=== PATIENT | female | born 1970 | race Caucasian/White ===

== ENCOUNTER 2018-03-04 16:52 | Observation (INO) | payer OTHER ==
[~2018-03-04] VITALS: Ht 160 cm; Wt 68.2 kg
--- NOTE | ~2018-03-04 | OP ---
PATIENT NAME: THEO RIDER MEDICAL RECORD: [id number] :68 LOCATION:[facility] ADMISSION DATE:03/04/18 SURGEON: JASE ARCOS MD DATE OF OPERATION: 03/05/2018 PROCEDURES: 1. PTCA stent LAD. 2. Intravascular ultrasound. 3. Left heart catheterization. 4. Selective coronary angiography. 5. Left ventriculogram. INDICATION: Unstable angina and coronary artery disease. PROCEDURE IN DETAIL: After informed consent was obtained and after a detailed description of the risks, benefits as well as alternative therapies, the patient elected to proceed with angiogram and angioplasty. The right radial area was prepped and draped in normal sterile fashion. Right radial artery was cannulated via modified Seldinger technique with placement of 6-Welsh sheath. All catheters exchanged through this sheath. FINDINGS: The left ventriculogram was performed in standard 30-degree DOUGHERTY view, reveals good cardiac wall motion throughout all segments. Overall ejection fraction estimated 60%. SELECTIVE CORONARY ANGIOGRAPHY: 1. Left main is with no significant angiographic disease. 2. Left anterior descending has a long area of greater than 75% stenosis confirmed by intravascular ultrasound throughout the proximal vessel. 3. Left circumflex has moderate irregularities, but no flow-limiting stenosis. 4. Right coronary artery has moderate irregularities, but no flow-limiting stenosis. PTCA STENT OF THE LAD: The stent used was a 3.0 x 22 mm Yamil. Result was 0% residual stenosis. OVERALL IMPRESSION: Successful percutaneous transluminal coronary angioplasty stent of the left anterior descending going from greater than 75% initial stenosis to 0% residual. TRANSINT:[id number] Voice Confirmation ID: [id number] DOCUMENT ID: [id number] JASE ARCOS MD at 1705 CC: [id number] DICTATION DATE: 03/05/18 1237 SURFACE MOUNT TECHNOLOGY OPERATOR: 03/05/18 1301 ADM IN [place] [address] [place] [address]
--- NOTE | ~2018-03-04 | DS ---
PATIENT:THEO RIDER :68 MEDICAL RECORD: [id number] DISCHARGE SUMMARY ADMISSION DATE: 03/04/18 DISCHARGE DATE: DATE OF SERVICE: 03/05/2018 DIAGNOSES: 1. Angina. 2. Coronary artery disease. 3. PTCA and stent of LAD this admission. HOSPITAL COURSE: Ms. Rider presented with anginal symptomatology, found to have significant disease of the LAD. Underwent successful PTCA and stent of this vessel. Was discharged home with the addition of aspirin and Plavix to her medical regimen. Will follow up with [facility] in 1 month. TRANSINT:[id number] Voice Confirmation ID: [id number] DOCUMENT ID: [id number] JASE ARCOS MD at 1705 CC: [id number] DICTATION DATE: 03/05/18 1237 SUPERVISOR DRY CLEANING: 03/05/18 1435 ADM IN [place] [address] [place] [address]
--- NOTE | ~2018-03-04 | HP ---
PATIENT: THEO RIDER MEDICAL RECORD: [id number] ACCOUNT: [id number] [facility] : 68 ADMISSION DATE: 03/04/18 HISTORY AND PHYSICAL EXAMINATION DIAGNOSES: 1. Unstable angina. 2. Hypertension. 3. Hyperlipidemia. 4. Family history of coronary artery disease. 5. Past smoking history. HISTORY OF PRESENT ILLNESS: Mrs. Rider presents with chest discomfort to [facility]. She has had 3 weeks of increasing chest discomfort. She is having daily episodes multiple times each day of chest discomfort compatible with angina. At this time, her EKG is with nonspecific ST-T abnormalities. Her troponin was normal. PHYSICAL EXAMINATION: GENERAL APPEARANCE: Well-nourished, well-developed, appears stated age. Level of distress, comfortable. PSYCHIATRIC: Mental status, alert, normal affect. Orientation, oriented to time, place and person. EYES: Lids and conjunctiva, noninjected. No discharge, no pallor. ENT: Lips, teeth, gums, normal dentition. Oropharynx, no cyanosis, no pallor. NECK: Carotid arteries, bilateral normal upstroke, no bruits, no thrills. JUGULAR VEINS: No jugular venous pressure or distention. CERVICAL LYMPH NODES: Nontender, nonenlarged. THYROID: Not enlarged. Nontender. No nodules. LUNGS: Respiratory effort, unlabored. CHEST: Normal curvature. No thoracic deformity. No chest wall tenderness. Percussion, resonant. Auscultation, clear. No wheezes, no rales, no rhonchi. CARDIOVASCULAR: Precordial exam, nondisplaced. No heaves or pericardial thrills. Rate and rhythm, regular. Heart sounds, normal S1, normal S2. No S3, no gallop, no rub. Systolic murmur, not heard. Diastolic murmur, not heard. EXTREMITIES: No cyanosis, no edema. Peripheral pulses, full and equal in all extremities, except as noted. No bruits appreciated. ABDOMEN: Soft, nondistended. Normal aorta. No bruit. Nontender. No masses. Liver, nontender, no hepatomegaly. Spleen, nontender, no splenomegaly. MUSCULOSKELETAL: No joint tenderness. No joint swelling. No erythema. NEUROLOGICAL: Normal gait, normal strength, normal tone. SKIN: Warm and dry. OVERALL IMPRESSION: Chest pain compatible with angina in an escalating unstable fashion. We will proceed with coronary angiography. Further care depends upon the findings of the angiography. TRANSINT:[id number] Voice Confirmation ID: [id number] DOCUMENT ID: [id number] HISTORY AND PHYSICAL [id number] THEO RIDER JEFFREY MD at 1705 CC: [id number] DICTATION DATE: 03/05/18 0839 DEVICE SALES CONSULTANT: 03/05/18 0904 ADM IN [place] [address] [place] [id number]
--- NOTE | ~2018-03-04 | HEMODYNAMI ---
PATIENT:THEO RIDER MEDICAL RECORD: [id number] : 68 LOCATION:[facility] D.2110 ADMISSION DATE: 03/04/18 Generatedon:03/05/201812:37 Patient name: THEO RIDER Patient #: [id number] SSN: : 1970 Date of study: 03/05/2018 Page: Of Hemodynamic Procedure Report Patient Data Patient Demographics Procedure consent was obtained First Name: THEO Gender: Female Last Name: ADRY : 1970 Patient #: [id number] Age: 47 year(s) Race: Unknown Additional ID: [id number] Past Medical History Allergies: No known allergies Admission Admission Data Admission Date: 03/04/2018 Admission Time: 16:52 Room #: [facility] Lab Results Lab Result Date: 03/04/2018 Lab Result Time: 11:45 Biochemistry Name Units Result Min Max BUN mg/dl 15 --(--*-)-- 7 18 Creatinine mg/dl 1.1 --(--*-)-- 0.6 1.3 CBC Name Units Result Min Max Hematocrit % 41 -*(----)-- 42 54 Hemoglobin g/dl 14.3 --(*---)-- 13.5 17.5 Procedure Procedure Types Cath Procedure Diagnostic Procedure [facility] w/Coronaries FFR/IVUS Intra-Coronary IVUS Initial Sedation Charges Moderate Sedation up to 15 minutes PCI Procedure Coronary Stent Coronary Stent Initial Procedure Description Procedure Date Procedure Date: 03/05/2018 Procedure Start Time: 12:15 Procedure End Time: 12:37 Procedure Staff Name Function Carlos Valerio MD Performing Physician Michele Monroe RN Nurse Malgorzata Ocasio RT Scrub Mahad Wong RT Monitor Procedure Data Cath Procedure Fluoroscopy Diagnostic fluoroscopy Total fluoroscopy Time: 5.8 time: 5.8 min min Diagnostic fluoroscopy Total fluoroscopy dose: 526 dose: 526 mGy mGy Contrast Material Contrast Material Type Amount (ml) Isovue 300 81 Entry Location Entry Primary Successful Side Size Upsize Upsize Entry Closure Haque ccessful Closure Location (Fr) 1 (Fr) 2 (Fr) Remarks Device Remarks Radial Right 6 Fr Mechanical artery Short Compression Estimated blood loss: 10 ml Diagnostic catheters Device Type Used For End Catheter Placement DIAGNOSTIC Redfield 110cm 5 Procedure Fr catheter ([id number]) Procedure Complications No complications Procedure Medications Medication Administration Route Dosage 0.9% NaCl I.V. 100 ml/hr Oxygen etCO2 Nasal cannula 2 l/min Heparin Flush Bag added to field 2 bags (1000units/500ml NS) Lidocaine 1% added to field 20 Radial Cocktail added to field 1 syringe (Verapomil 2mg/Nitro 400mcg/Heparin 1500units) Versed I.V. 2 mg Fentanyl I.V. 100 mcg Fentanyl I.V. 50 mcg Radial Cocktail I.A. 1 syringe (Verapomil 2mg/Nitro 400mcg/Heparin 1500units) Versed I.V. 1 mg Radial Cocktail I.A. 1 syringe (Verapomil 2mg/Nitro 400mcg/Heparin 1500units) Heparin Bolus I.V. 3000 units Hemodynamics Rest HGB: 14.3 (g/dl) Heart Rate: 75 (bpm) Snapshots Pre Cath Intra NCS Post Cath Vital Signs Time Heart Resp SPO2 etCO2 NIBP Rhythm Pain Sedation Rate (ipm) (%) (mmHg) (mmHg) Status Level (bpm) 11:58:12 75 14 97 3 104/60(83) NSR 0 (11) 10(A) , No pain 12:02:49 74 14 95 1.5 104/49(75) NSR 0 (11) 10(A) , No pain 12:07:23 68 15 95 1.5 92/54(84) NSR 0 (11) 10(A) , No pain 12:11:58 68 14 97 2.2 99/46(73) NSR 0 (11) 10(A) , No pain 12:16:32 64 17 99 1.5 114/58(90) NSR 0 (11) 10(A) , No pain 12:21:09 90 19 94 2.2 82/46(73) NSR 0 (11) 10(A) , No pain 12:25:43 84 14 96 2.2 93/39(76) NSR 0 (11) 9(A) , No pain 12:30:17 83 12 95 2.2 95/50(85) NSR 0 (11) 9(A) , No pain 12:34:50 90 12 97 2.2 107/54(86) NSR 0 (11) 9(A) , No pain Medications Time Medication Route Dose Verified Delivered Reason Not es Effectiveness by by 11:55:37 0.9% NaCl I.V. 100 Michele Michele Per physician ml/hr Mabel Monroe RN RN 11:55:47 Oxygen etCO2 2 l/min Michele Michele Per physician Nasal Mabel Monroe cannula RN RN 11:57:46 Heparin Flush added 2 bags Michele Michele used for Bag to Lormyron Monroe procedure (1000units/500ml field RN RN NS) 11:58:05 Lidocaine 1% added 20ml Michele Michele for local to vial Lorigan Lorigan anesthetic RN RN 12:01:53 Radial Cocktail added 1 Michele Michele used for (Verapomil to syringe Mabel Monroe procedure 2mg/Nitro field RN RN 400mcg/Heparin 1500units) 12:09:51 Versed I.V. 2 mg Michele Michele for sedation Mabel Monroe RN RN 12:10:00 Fentanyl I.V. 100 mcg Michele Michele for sedation Mabel Monroe RN RN 12:14:29 Fentanyl I.V. 50 mcg Michele Michele for sedation Mabel Monroe RN RN 12:16:54 Radial Cocktail I.A. 1 Michele Carlos for (Verapomil syringe Mabel Valerio MD vasodilation 2mg/Nitro RN 400mcg/Heparin 1500units) 12:17:06 Versed I.V. 1 mg Michele Michele for sedation Mabel Monroe RN RN 12:24:33 Radial Cocktail I.A. 1 Michele Carlos for (Verapomil syringe Mabel Valerio MD vasodilation 2mg/Nitro RN 400mcg/Heparin 1500units) 12:29:18 Heparin Bolus I.V. 3,000 Michele Michele for units Mabel Monroe anticoagulation RN flat surfacer jewel Log Time Note 11:32:22 Signed procedure consent form obtained from patient. 11:32:24 Time tracking: Regular hours (M-F 7:00 - 5:00) 11:32:28 Plan of Care:Hemodynamics will remain stable., Cardiac rhythm will remain stable., Comfort level will be maintained., Respiratory function will remain adequate., Patient/ family verbilizes understanding of procedure., Procedure tolerated without complication., Recovers from procedure without complications.. 11:34:16 H&P Date Dictated: 03/04/2018 Within 30 days and on chart.. 11:34:22 Michele Monroe RN sent for patient. Start room use. 11:43:11 Patient received from Med II to CCL 1 Alert and oriented. Tansferred to table in Supine position. 11:43:12 Warm blankets applied, and hiral hugger turned on for patient comfort. 11:43:13 Correct patient and procedure confirmed by team. 11:43:14 ECG and BP/O2 sat monitors applied to patient. 11:43:15 Pre-procedure instructions explained to patient. 11:43:15 Pre-op teaching completed and patient verbalized understanding. 11:43:17 Family in patients room. 11:43:18 Patient NPO since Midnight. 11:43:23 Patient allergic to No known allergies 11:55:37 0.9% NaCl 100 ml/hr I.V. was administered by Michele Monroe RN; Per physician; 11:55:47 Oxygen 2 l/min etCO2 Nasal cannula was administered by Michele Monroe RN; Per physician; 11:57:21 Vital chart was started 11:57:46 Heparin Flush Bag (1000units/500ml NS) 2 bags added to field was administered by Michele Monroe RN; used for procedure; 11:58:05 Lidocaine 1% 20ml vial added to field was administered by Michele Monroe RN; for local anesthetic; 12:00:06 Is the patient allergic to Iodine/contrast media? No. 12:00:07 Is patient on blood thinner?Yes 12:00:09 ACC The patient was administered the following blood thiners within the last 24 hours: ACCPlavix 12:00:11 Patient diabetic? No. 12:00:15 Previous problem with sedation/anesthesia? Yes nausea 12:00:17 Snore? No 12:00:18 Sleep apnea? No 12:00:19 Deviated septum? No 12:00:19 Opens mouth fully? Yes 12:00:20 Sticks out tongue? Yes 12:00:22 Airway obstruction? No ? 12:00:23 Dentures? No ? 12:00:26 Pre procedure: right dorsailis pedis pulse 2+ Normal; easily identifiable; not easily obliterated 12:00:28 Modified Pedro's test Ulnar < 7 seconds 12:00:31 Patient pain scale 0/10 ?. 12:00:35 IV patent on arrival in right hand with 0.9% NaCl at [facility]. 12:01:53 Radial Cocktail (Verapomil 2mg/Nitro 400mcg/Heparin 1500units) 1 syringe added to field was administered by Michele Monroe RN; used for procedure; 12::35 Lab Result : BUN 15 mg/dl 12::35 Lab Result : Creatinine 1.1 mg/dl 12::35 Lab Result : Hemoglobin 14.3 g/dl 12::35 Lab Result : Hematocrit 41 % 12:02:40 Lab results completed and on chart. 12:02:43 Right Radial & Right Groin area was prepped with chlora-prep and draped in sterile fashion 12:02:45 Alarms reviewed by R. N. 12:02:46 Sharps counted by scrub and verified by R.N. 12:02:50 Baseline sample Acquired. 12:02:53 Rhythm: sinus rhythm 12:02:54 Full Disclosure recording started 12:02:58 Patient not . Patient has had hysterectomy. 12:03:02 Use device set Radial Dx or PCI 12:03:03 ACIST Syringe (77048) opened to sterile field. 12:03:04 Medline Cath Pack ([id number]) opened to sterile field. 12:03:04 Bag Decanter () opened to sterile field. 12:03:05 ACIST Hand Control (25885) opened to sterile field. 12:03:05 ACIST Manifold (57133) opened to sterile field. 12:03:06 Tegaderm 4 x 4 (1626W) opened to sterile field. 12:03:06 MBrace Wrist Support ([id number]) opened to sterile field. 12:03:11 DIAGNOSTIC WIRE .035 260cm J wire (454854) opened to sterile field. 12:03:12 SHEATH 6Fr Prelude Radial ([id number]) opened to sterile field. 12:05:53 Zero performed for pressure channel P1 12:09:15 Physician arrived 12::15 --------ALL STOP TIME OUT------ 12::16 Final Timeout: patient, procedure, and site verified with staff and physician. All members of the team are in agreement. 12:09:18 Right Radial & Right Groin site verified by team. 12:09:21 Physical assessment completed. ASA score P 2 - A patient with mild systemic disease as per Carlos Valerio MD. 12::23 Sedation plan: IV Moderate Sedation Medication:Versed, Fentanyl 12:09:51 Versed 2 mg I.V. was administered by Michele Monroe RN; for sedation; 12:10:00 Fentanyl 100 mcg I.V. was administered by Michele Monroe RN; for sedation; 12:14:29 Fentanyl 50 mcg I.V. was administered by Michele Monroe RN; for sedation; 12:14:59 Procedure started. 12:15:03 Local anesthetic to right radial artery with Lidocaine 1% by Carlos Valerio MD.INITIAL ACCESS ONLY 12:15:10 A 6 Fr Short sheath was inserted into the Right Radial artery 12:16:11 A DIAGNOSTIC Redfield 110cm 5 Fr catheter (106804) was advanced over the wire and used for Procedure. 12:16:54 Radial Cocktail (Verapomil 2mg/Nitro 400mcg/Heparin 1500units) 1 syringe I.A. was administered by Carlos Valerio MD; for vasodilation; 12:17:04 LV gram done using DOUGHERTY 12:17:06 Versed 1 mg I.V. was administered by Michele Monroe RN; for sedation; 12:17:11 Injector settings: Ml/sec: 5, Volume: 15, 12:17:49 EF : 60 % 12:17:55 RCA angiography performed. 12:18:12 Catheter exchanged over wire. 12:18:33 GUIDE 6FR EBU 3.0 catheter (ON4HBC28) opened to sterile field. 12:18:44 6 Fr ebu 3.0 guide catheter was inserted over the wire 12:20:39 LCA angiography performed. 12:22:13 CHOICE PT Extra Support 182cm wire ([id number]) opened to sterile field. 12:22:14 INFLATOR Merit BasixCompak (NA9916) opened to sterile field. 12:22:15 [place] Solomon Eagleye IVUS Catheter (70553R) opened to sterile field. 12:: GUIDE 6FR EBU 3.5 catheter ([id number]) opened to sterile field. 12:: Catheter exchanged over wire. 12:: 6 Fr ebu 3.5 guide catheter was inserted over the wire 12:: Radial Cocktail (Verapomil 2mg/Nitro 400mcg/Heparin 1500units) 1 syringe I.A. was administered by Carlos Valerio MD; for vasodilation; 12:: choice pt wire advanced. 12::09 Wire advanced across lesion. 12::12 IVUS catheter advanced over wire. 12:29:18 Heparin Bolus 3,000 units I.V. was administered by Michele Monroe RN; for anticoagulation; 12:30:09 IVUS pass to LAD lesion performed. 12:30:17 IVUS catheter removed over wire. 12:31:06 Place stent Inflation Number: 1 A KYRA RX 3.0 x 22 stent ([id number]) was prepped and advanced across the Prox LAD. The stent was deployed at 11 MIGUEL ANGEL for 0:10 (min:sec). 12::16 Stent catheter was removed intact over wire. 12::17 Wire removed. 12::21 Guide catheter removed. ::24 TR BAND Standard ([id number]) opened to sterile field. 12::32 Sheath removed intact; hemostasis achieved with Mechanical Compression to the Right Radial artery. 12::34 Procedure ended.(Physican Out) :: Fluoroscopy time 05.80 minutes. :: Flurop Dose total: 526 12:: Fluoroscopy dose: 526 mGy 12:: Contrast amount:Isovue 300 81ml. 12::34 Sharps counted by scrub and verified by R.N. 12:33:36 TR band inflated with 12cc of air. 12:33:44 Insertion/operative site no bleeding no hematoma. 12:33:51 Post right radial artery:stable, soft, clean and dry 12:33:52 Post Procedure Pulses reassessed and unchanged 12:33:55 Post-procedure physical assessment completed. ASA score P 2 - A patient with mild systemic disease as per Carlos Valerio MD. 12:33:59 Post procedure rhythm: unchanged. 12:35:05 Estimated blood loss: 10 ml 12:35:07 Post procedure instruction explained to patient.Patient verbalizes understanding. 12:35:07 Patient needs reinforcement of post procedure teaching. 12:36:14 Procedure type changed to Cath procedure, Diagnostic procedure, LHC, C w/Coronaries, FFR/IVUS, Intra-Coronary IVUS Initial, Sedation Charges, Moderate Sedation up to 15 minutes, PCI procedure, Coronary Stent, Coronary Stent Initial 12:37:05 Procedure and supply charges have been captured, reviewed, submitted and are correct. 12:37:07 Procedure Complication : No complications 12:37:09 Vital chart was stopped 12:37:10 See physician's report for complete and final results. 12:37:11 Report given to Pre/Post Procedure Room. 12:37:13 Patient transfered to Pre/Post Procedure Room with Stretcher. 12:37:15 Procedure ended. 12:37:15 Full Disclosure recording stopped 12:37:30 End room use (Document Last) Intervention Summary Intervention Notes Time ActionType Lesion and Equipment Used Action# Pressure Duration Attributes 12:31:[address] Place stent Prox LAD KYRA RX 3.0 x 1 11 00:10 22 stent ([id number]) Device Usage Item Name Manufacture Quantity Catalog Number Hospital Part Current Minimal Lot# / Charge Number Stock Stock Serial# Code ACIST Syringe Acist 1 62690 023547 158939 321352 20 (92658) Medical Systems Inc Medline Cath Cardinal 1 [id number] 179990 44814 648780 5 Pack Health ([id number]) Bag Decanter Microtek 1 2001S 941859 49314 010778 5 (2001S) Medical Inc. ACIST Hand Acist 1 83314 261160 709060 515276 5 Control (03258) Medical Systems Inc ACIST Manifold Acist 1 90493 711780 097843 477717 5 (01635) Medical Systems Inc Tegaderm 4 x 4 3M 1 1626W 472678 646665 534637 5 (1626W) MBrace Wrist Advanced 1 140-0250-00 226324 32812 570530 5 Support Vascular ([id number]) Dynamics DIAGNOSTIC WIRE St Jarrell 1 290185 511205 252877 420484 30 .035 260cm J wire (997050) SHEATH 6Fr Merit 1 [id number] 313161 340241 317018 5 Prelude Radial Medical ([id number]) DIAGNOSTIC Terumo 1 40-2289 633531 261197 225617 5 Redfield 110cm 5 Fr catheter (917980) GUIDE 6FR EBU Medtronic 1 [id number] 209639 75343 827687 0 3.0 catheter ([id number]) CHOICE PT Extra Normal 1 [id number] 018046 788969 208966 5 Support 182cm Scientific wire ([id number]) INFLATOR Merit Merit 1 DA9624 714846 969370 838233 15 [facility] (OH9268) [place] 1 11196J 157163 991838 808719 8 Solomon Eagleye IVUS Catheter (50624T) GUIDE 6FR EBU Medtronic 1 [id number] 766274 11412 299717 3 3.5 catheter ([id number]) KYRA RX 3.0 x Medtronic 1 [id number] 455437 9941178 807111 5 [id number] 22 stent ([id number]) TR BAND Terumo 1 [id number] 176434 499935 127170 40 Standard ([id number]) Signature Audit Valier Stage Time Signature Unsigned Intra-Procedure 03/05/2018 Mahad Wong 12:37:46 PM RT(R) Signatures Monitor : Mahad Wong RT Signature : Date : Time : [facility] [address] [place] [address]
[2018-03-04] MEDS ORDERED: MOBIC7.5 MG PO (17:08)
[2018-03-04] MEDS ORDERED: TOPAMAX100 MG PO (17:08)
[2018-03-04] MEDS ORDERED: LIPITOR20 MG PO (17:11)
[2018-03-04] MEDS ORDERED: TOPROL XL25 MG PO (17:12)
[2018-03-04 17:13] VITALS: BP 150/84; Ht 160 cm; Wt 68.2 kg
[2018-03-04 21:05] VITALS: BP 139/67
[2018-03-05] VITALS: BP 127/70
[2018-03-05 04:00] VITALS: BP 109/62
[2018-03-05 07:51] VITALS: BP 117/72
[2018-03-05 11:26] VITALS: BP 124/73
[2018-03-05] MEDS ORDERED: PLAVIX75 MG PO (13:05)
== END 2018-03-05 17:07 | disposition home or self-care (01) ==
LOC: D.M2 16:52 → OBSVTIME 16:52 → D.CLR 03-05 15:00
DX: I25.110 Atherosclerotic heart disease of native coronary artery with unstable angina pectoris (principal); I10 Essential (primary) hypertension; E78.5 Hyperlipidemia, unspecified; Z82.49 Family history of ischemic heart disease and other diseases of the circulatory system; Z87.891 Personal history of nicotine dependence

== ENCOUNTER 2018-09-12 08:06 | Outpatient (CLI) | payer OTHER ==
[~2018-09-12] VITALS: Ht 160 cm; Wt 68.6 kg
--- NOTE | ~2018-09-12 | HEMODYNAMI ---
PATIENT:THEO RIDER MEDICAL RECORD: [id number] : 68 LOCATION:[facility] ADMISSION DATE: 09/12/18 Generatedon:09/12/201811:06 Patient name: THEO RIDER Patient #: [id number] SSN: : 1970 Date of study: 09/12/2018 Page: Of Hemodynamic Procedure Report Patient Data Patient Demographics Procedure consent was obtained First Name: THEO Gender: Female Last Name: ADRY : 1970 Patient #: [id number] Age: 48 year(s) Race: Unknown Additional ID: [id number] Contact details Address: [address] [place] [address] State: [place] City: [place] Zip code: [address] Past Medical History Allergies: No known allergies Admission Admission Data Admission Date: 09/12/2018 Admission Time: 8:06 Height (in.): 63 BSA: 1.72 (m2) Height (cm.): 160.02 BMI: 26.75 (kg/m2) Weight (lbs.): 151 Weight (kg.): 68.49 Lab Results Lab Result Date: 09/12/2018 Lab Result Time: 0:00 Biochemistry Name Units Result Min Max BUN mg/dl 12 --(-*--)-- 7 18 Creatinine mg/dl 0.9 --(-*--)-- 0.6 1.3 CBC Name Units Result Min Max Hemoglobin g/dl 15 --(-*--)-- 13.5 17.5 Procedure Procedure Types Cath Procedure Diagnostic Procedure LHC LHC w/Coronaries FFR/IVUS Intra-Coronary IVUS Initial Sedation Charges Moderate Sedation up to 15 minutes PCI Procedure Coronary Stent Coronary Stent Initial Procedure Description Procedure Date Procedure Date: 09/12/2018 Procedure Start Time: 10:49 Procedure End Time: 11:05 Procedure Staff Name Function Carlos Valerio MD Performing Physician Kirstin Restrepo RT Monitor Mahad Wong RT Scrub Frank Larry RN Nurse Procedure Data Cath Procedure Fluoroscopy Diagnostic fluoroscopy Total fluoroscopy Time: 3.4 time: 3.4 min min Diagnostic fluoroscopy Total fluoroscopy dose: 209 dose: 209 mGy mGy Contrast Material Contrast Material Type Amount (ml) Isovue 300 96 Entry Location Entry Primary Successful Side Size Upsize Upsize Entry Closure Haque ccessful Closure Location (Fr) 1 (Fr) 2 (Fr) Remarks Device Remarks Radial Right 6 Fr Mechanical artery Short Compression Estimated blood loss: 10 ml Diagnostic catheters Device Type Used For End Catheter Placement DIAGNOSTIC [place] 110cm 5 LV Angiography Fr catheter ([id number]) DIAGNOSTIC [place] 110cm 5 Left Coronary Fr catheter ([id number]) Angiography DIAGNOSTIC [place] 110cm 5 Right Coronary Fr catheter ([id number]) Angiography Procedure Complications No complications Procedure Medications Medication Administration Route Dosage Oxygen etCO2 Nasal cannula 2 l/min Heparin Flush Bag added to field 2 bags (1000units/500ml NS) 0.9% NaCl I.V. 100 ml/hr Radial Cocktail added to field 1 syringe (Verapomil 2mg/Nitro 400mcg/Heparin 1500units) Fentanyl I.V. 50 mcg Versed I.V. 1 mg Versed I.V. 1 mg Radial Cocktail I.A. 1 syringe (Verapomil 2mg/Nitro 400mcg/Heparin 1500units) Fentanyl I.V. 50 mcg Heparin Bolus I.V. 4000 units Hemodynamics Rest BSA: 1.72 (m2) HGB: 15 (g/dl) O2 Consumption: Estimated: 165.14 (ml/min) O2 Cons umption indexed: Estimated:96.01 (ml/min/m) Heart Rate: 64 (bpm) Snapshots Pre Cath Intra NCS Post Cath Vital Signs Time Heart Resp SPO2 etCO2 NIBP (mmHg) Rhythm Pain Sedation Rate (ipm) (%) (mmHg) Status Level (bpm) 10:25:07 58 17 99 0 138/78(94) NSR 0 (11) 10(A) , No pain 10:29:25 64 16 100 0 129/74(96) NSR 0 (11) 10(A) , No pain 10:33:43 76 17 100 0 142/66(101) NSR 0 (11) 10(A) , No pain 10:37:55 75 16 100 28.3 135/82(108) NSR 0 (11) 10(A) , No pain 10:42:14 72 16 100 20.1 139/68(97) NSR 0 (11) 10(A) , No pain 10:46:27 73 16 98 28.3 123/67(100) NSR 0 (11) 10(A) , No pain 10:50:35 71 16 96 35.8 115/74(95) NSR 0 (11) 10(A) , No pain 10:54:47 78 16 96 26.1 104/60(83) NSR 0 (11) 9(A) , No pain 10:58:55 81 17 95 17.1 108/63(86) NSR 0 (11) 9(A) , No pain 11:03:05 85 16 96 34.3 119/64(83) NSR 0 (11) 9(A) , No pain 11:05:30 82 16 98 33.6 112/64(79) NSR 0 (11) 9(A) , No pain Medications Time Medication Route Dose Verified Delivered Reason Not es Effectiveness by by 10:41:11 Oxygen etCO2 2 l/min Carlos Marie Per physician Nasal Iman Larry RN cannula 10:41:21 Heparin Flush added 2 bags Carlos Marie used for Bag to Iman Larry RN procedure (1000units/500ml field NS) 10:41:31 0.9% NaCl I.V. 100 Carlos Marie Per physician ml/hr Iman Larry RN 10:43:22 Radial Cocktail added 1 Carlos Marie used for (Verapomil to syringe Iman Larry RN procedure 2mg/Nitro field 400mcg/Heparin 1500units) 10:47:21 Fentanyl I.V. 50 mcg Carlos Marie for sedation Iman Larry RN 10:47:29 Versed I.V. 1 mg Carlos Marie for sedation Iman Larry RN 10:49:29 Versed I.V. 1 mg Carlos Marie for sedation Iman Larry RN 10:51:59 Radial Cocktail I.A. 1 Carlos Gonzalez for (Verapomil syringe Iman celaya 2mg/Nitro 400mcg/Heparin 1500units) 10:52:09 Fentanyl I.V. 50 mcg Carlos Marie for sedation Tauth MD Larry RN 11:01:16 Heparin Bolus I.V. 4000 Carlos Marie for units Iman Larry RN anticoagulation Procedure Log Time Note 10:05:48 Frank Larry RN sent for patient. Start room use. 10:11:46 Signed procedure consent form obtained from patient. 10:11:49 Diagnostic Cath status Elective 10:11:54 Plan of Care:Hemodynamics will remain stable., Cardiac rhythm will remain stable., Comfort level will be maintained., Respiratory function will remain adequate., Patient/ family verbilizes understanding of procedure., Procedure tolerated without complication., Recovers from procedure without complications.. 10:11:55 Time tracking: Regular hours (M-F 7:00 - 5:00) 10:12:02 H&P Date Dictated: 09/10/2018 Within 30 days and on chart., H&P Addendum completed by physician on day of procedure. (MUST COMPLETE FOR ALL OUTPATIENTS). 10:12:10 Patient Height : 63 inches 10:12:13 Patient Weight : 151 lbs 10:12:22 Patient allergic to No known allergies 10:14:27 Lab Result : BUN 12 mg/dl 10:14:27 Lab Result : Creatinine 0.9 mg/dl 10:14:27 Lab Result : Hemoglobin 15 g/dl 10:20:55 Patient received from Pre/Post Procedure Room to CCL 3 Alert and oriented. Tansferred to table in Supine position. 10:20:56 Warm blankets applied, and hiral hugger turned on for patient comfort. 10:20:56 Correct patient and procedure confirmed by team. 10:20:56 ECG and BP/O2 sat monitors applied to patient. 10:20:57 Pre-procedure instructions explained to patient. 10:20:58 Pre-op teaching completed and patient verbalized understanding. 10:20:58 Family in waiting room. 10:21:00 Patient NPO since Midnight. 10:21:01 Is the patient allergic to Iodine/contrast media? No. 10:21:02 Is patient on blood thinner?Yes 10:21:04 ACC The patient was administered the following blood thiners within the last 24 hours: ACCPlavix 10:21:05 Patient diabetic? No. 10:21:10 Previous problem with sedation/anesthesia? Yes nausea 10:21:11 Snore? No 10:21:13 Sleep apnea? No 10:21:14 Deviated septum? No 10:21:14 Opens mouth fully? Yes 10:21:15 Sticks out tongue? Yes 10:21:16 Airway obstruction? No ? 10:21:18 Dentures? No ? 10:21:21 Modified Pedro's test Ulnar < 7 seconds 10:21:22 Patient pain scale 0/10 ?. 10:21:26 IV patent on arrival in left wrist with 0.9% NaCl at [facility]. 10:21:27 Lab results completed and on chart. 10:21:29 Right Radial & Right Groin area was prepped with chlora-prep and draped in sterile fashion 10:21:30 Alarms reviewed by R. N. 10:21:30 Sharps counted by scrub and verified by R.N. 10:21:32 Use device set Radial Dx or PCI 10:21:32 ACIST Syringe (57504) opened to sterile field. 10:21:33 Medline Cath Pack ([id number]) opened to sterile field. 10:21:33 Bag Decanter (2002S) opened to sterile field. 10:21:34 ACIST Hand Control (01620) opened to sterile field. 10:21:34 ACIST Manifold (46872) opened to sterile field. 10:21:35 Tegaderm 4 x 4 (1626W) opened to sterile field. 10:21:35 MBrace Wrist Support ([id number]) opened to sterile field. 10:21:36 SHEATH 6FR Slender (01-9650) opened to sterile field. 10:21:37 DIAGNOSTIC WIRE .035 260cm J wire (428327) opened to sterile field. 10:24:04 Vital chart was started 10:24:33 Baseline sample Acquired. 10:27:53 Rhythm: sinus rhythm 10:27:55 Full Disclosure recording started 10:28:58 Patient not . Patient has had hysterectomy. 10:41:11 Oxygen 2 l/min etCO2 Nasal cannula was administered by Frank Larry RN; Per physician; 10:41:21 Heparin Flush Bag (1000units/500ml NS) 2 bags added to field was administered by Frank Larry RN; used for procedure; 10:41:31 0.9% NaCl 100 ml/hr I.V. was administered by Frank Larry RN; Per physician; 10:43:22 Radial Cocktail (Verapomil 2mg/Nitro 400mcg/Heparin 1500units) 1 syringe added to field was administered by Frank Larry RN; used for procedure; ::52 Zero performed for pressure channel P1 10:47:00 Final Timeout: patient, procedure, and site verified with staff and physician. All members of the team are in agreement. 10:47:05 Right Radial site verified by team. 10:47:08 Physical assessment completed. ASA score P 2 - A patient with mild systemic disease as per Carlos Valerio MD. 10:47:10 Sedation plan: IV Moderate Sedation Medication:Versed, Fentanyl 10:47:21 Fentanyl 50 mcg I.V. was administered by Frank Larry RN; for sedation; :47:29 Versed 1 mg I.V. was administered by Frank Larry RN; for sedation; 10:49:00 Procedure started. 10:49:04 Local anesthetic to right radial artery with Lidocaine 2% by Carlos Valerio MD.INITIAL ACCESS ONLY 10:49:29 Versed 1 mg I.V. was administered by Frank Larry RN; for sedation; 10:51:52 A 6 Fr Short sheath was inserted into the Right Radial artery 10:51:59 Radial Cocktail (Verapomil 2mg/Nitro 400mcg/Heparin 1500units) 1 syringe I.A. was administered by Carlos Valerio MD; for vasodilation; 10:52:00 A DIAGNOSTIC [place] 110cm 5 Fr catheter (052708) was advanced over the wire and used for LV Angiography. 10:52:09 Fentanyl 50 mcg I.V. was administered by Frank Larry RN; for sedation; 10:52:56 LV gram done using [place] 10:53:00 Injector settings: Ml/sec: 5, Volume: 15, 10:53:09 EF : 60 % 10:54:32 A DIAGNOSTIC [place] 110cm 5 Fr catheter ([id number]) was advanced over the wire and used for Left Coronary Angiography. 10:54:54 A DIAGNOSTIC [place] 110cm 5 Fr catheter (165471) was advanced over the wire and used for Right Coronary Angiography. 10:55:13 Use device set [facility] PCI 10:55:21 INFLATOR Merit BasixCompak (UF2273) opened to sterile field. 10:55:25 CHOICE PT Extra Support 182cm wire ([id number]) opened to sterile field. 10:55:30 GUIDE 6FR AR 1.0 catheter ([id number]) opened to sterile field. 10:55:38 Show Low [place] IVUS Catheter (49896N) opened to sterile field. 10:56:56 6 Fr AR 1.0 guide catheter was inserted over the wire 10:57:29 CHOICE PT ES wire advanced. 10:59:27 IVUS catheter advanced over wire. 10:59:32 IVUS pass to RCA lesion performed. 10:59:33 IVUS catheter removed over wire. 11:01:15 Inflate balloon Inflation number: 1 A INTEGRITY RX 3.5 x 15 stent ([id number]) was prepped and advanced across the Mid RCA, then inflated to 13 MIGUEL ANGEL for 0:10 (min:sec). 11:01:16 Heparin Bolus 4000 units I.V. was administered by Frank Larry RN; for anticoagulation; 11:01:51 Stent catheter was removed intact over wire. 11:01:51 Wire removed. 11:01:54 Guide catheter removed. 11:02:03 Sheath removed intact; hemostasis achieved with Mechanical Compression to the Right Radial artery. 11:02:08 Procedure ended.(Physican Out) 11:03:09 Fluoroscopy time 03.40 minutes. 11:03:14 Fluoroscopy dose: 209 mGy 11:03:14 Flurop Dose total: 209 11:03:19 Contrast amount:Isovue 300 96ml. 11:03:21 Sharps counted by scrub and verified by R.N. 11:03:27 TR band inflated with 10cc of air. 11:03:29 Insertion/operative site no bleeding no hematoma. 11:03:37 Post right radial artery:stable, clean and dry 11:03:42 Post Procedure Pulses reassessed and unchanged 11:03:44 Post-procedure physical assessment completed. ASA score P 2 - A patient with mild systemic disease as per Carlos Valerio MD. 11:03:52 Post procedure rhythm: unchanged. 11:03:54 Estimated blood loss: 10 ml 11:03:56 Post procedure instruction explained to patient.Patient verbalizes understanding. 11:03:56 Patient needs reinforcement of post procedure teaching. 11:04:15 Procedure type changed to Cath procedure, Diagnostic procedure, LHC, LHC w/Coronaries, FFR/IVUS, Intra-Coronary IVUS Initial, Sedation Charges, Moderate Sedation up to 15 minutes, PCI procedure, Coronary Stent, Coronary Stent Initial 11:04:22 Procedure Complication : No complications 11:04:23 See physician's report for complete and final results. 11:04:29 TR BAND Standard ([id number]) opened to sterile field. 11:04:51 Procedure and supply charges have been captured, reviewed, submitted and are correct. 11:04:52 Vital chart was stopped 11:04:54 Report given to Pre/Post Procedure Room. 11:04:57 Patient transfered to Pre/Post Procedure Room with Stretcher. 11:05:07 Procedure ended. 11:05:07 Full Disclosure recording stopped 11:05:11 End room use (Document Last) Intervention Summary Intervention Notes Time ActionType Lesion and Equipment Action# Pressure Duration Attributes Used 11:01:15 Inflate Mid RCA INTEGRITY RX 1 13 00:10 balloon 3.5 x 15 stent ([id number]) Device Usage Item Name Manufacture Quantity Catalog Number Hospital Part Current Mini mal Lot# / Charge Number Stock Stock Serial# Code ACIST Acist 1 87857 216691 904079 112943 20 Syringe Medical (02302) Systems Inc Medline Cath Medline 1 [id number] 108814 43543 201781 5 Pack ([id number]) Bag Decanter Microtek 1 2001S 547332 96116 946511 5 (2001S) Medical Inc. ACIST Hand Acist 1 88705 158529 340615 737769 5 Control Medical (17675) Systems Inc ACIST Acist 1 67115 467985 984106 092172 5 Manifold Medical (19050) Systems Inc Tegaderm 4 x 3M 1 1626W 268102 637250 200557 5 4 (1626W) MBrace Wrist Advanced 1 140-0250-00 850938 41731 664157 5 Support Vascular (122931492) Dynamics SHEATH 6FR Terumo 1 [id number] 084153 980593 603176 5 Slender (80-1060) DIAGNOSTIC St Jarrell 1 126852 067336 976948 482008 30 WIRE .035 260cm J wire (443788) DIAGNOSTIC Terumo 1 40-6798 735482 450851 419925 5 [place] 110cm 5 Fr catheter (288590) INFLATOR Merit 1 DB9738 384859 302675 513855 15 [facility] Medical BasixCompak (OK6105) CHOICE PT Simpson 1 [id number] 483104 029422 885890 5 Extra Scientific Support 182cm wire (1791406C0) GUIDE 6FR AR Medtronic 1 [id number] 117678 17224 287912 1 1.0 catheter (RQ7TD85) Show Low Show Low 1 93590L 734198 503406 463908 8 [place] IVUS Catheter (92747V) INTEGRITY RX Medtronic 1 [id number] 837425 783071 520869 5 [id number] 3.5 x 15 stent ([id number]) TR BAND Terumo 1 [id number] 313610 807570 905920 40 Standard ([id number]) Signature Audit [place] Stage Time Signature Unsigned Intra-Procedure 09/12/2018 Kirstin 11:06:48 AM Counts RT(R) Signatures Monitor : Kirtsin Signature : Counts RT Date : Time : [address] [address]
[~2018-09-12 08:06] MED LIST: LIPITOR20 MG PO; MOBIC7.5 MG PO; PLAVIX75 MG PO; TOPAMAX100 MG PO; TOPROL XL25 MG PO
[2018-09-12] MEDS ORDERED: BYSTOLIC5 MG PO (08:31)
[2018-09-12] MEDS ORDERED: RED YEAST RICE600 MG PO (08:32)
[2018-09-12] MEDS ORDERED: BAYER CHEWABLE81 MG PO (08:32)
[2018-09-12] MEDS ORDERED: KRILL OIL 1,001 EAC1 PO (08:32)
[2018-09-12 08:37] VITALS: BP 142/66; Ht 160 cm; Wt 68.6 kg
[2018-09-12 08:49] LABS: EOSINOPHILS 2.3 % (0-7); HEMATOCRIT 42.4 % (36.0-48.0); IMMATURE GRANULOCYTES 0.2 % (0-5); LYMPHOCYTES 42.5 % (15-50); MCHC 35.4 g/dL (31.0-37.0); MCV 84.8 fL (80.0-100.0); MEAN PLATELET VOLUME 10.2 fL (7.4-10.4); MONOCYTES 9.3 % (2-11); NEUTROPHILS 44.7 % (40-80); PLATELET COUNT 290 10x3/uL (130-400); RDW 13.2 % (11.5-14.5); WBC 6.1 10x3/uL (4.8-10.8)
[2018-09-12 09:02] LABS: ANION GAP 16.1 mmol/L (8-16); CARBON DIOXIDE 21.6 mmol/L (21.0-32.0); CREATININE - SERUM 0.9 mg/dL (0.6-1.3); POTASSIUM - SERUM 3.7 mmol/L (3.5-5.1)
--- NOTE | 2018-09-18 14:56 | OP ---
PATIENT NAME: THEO RIDER MEDICAL RECORD: [id number] :68 LOCATION:D.CAT ADMISSION DATE: SURGEON: JASE ARCOS MD DATE OF OPERATION: 09/12/2018 PROCEDURES: 1. PTCA and stent, RCA. 2. Intravascular ultrasound. 3. Left heart catheterization. 4. Selective coronary angiography. 5. Left ventriculogram. INDICATION: Angina and coronary artery disease. PROCEDURE IN DETAIL: After informed consent was obtained with detailed description of risks and benefits as well as alternative therapies, the patient elected to proceed with angiogram and angioplasty. The right radial area was prepped and draped in normal sterile fashion. Right radial artery was cannulated via modified Seldinger technique with placement of 6-Romansh sheath. All catheters were exchanged through this sheath. FINDINGS: Left ventriculogram performed in standard 30-degree DOUGH[place] view reveals good cardiac wall motion throughout all segments. Overall ejection fraction estimated at 60%. SELECTIVE CORONARY ANGIOGRAPHY: 1. Left main is with no significant angiographic disease. 2. Left anterior descending has moderate irregularities, but no flow-limiting stenosis. Previously placed stent is widely patent with no significant restenosis. 3. Left circumflex has moderate irregularities, but no flow-limiting stenosis. 4. Right coronary has 70% stenosis in mid vessel. It is new from last cardiac catheterization. This is confirmed by intravascular ultrasound. PTCA AND STENT OF THE RCA: Stent used was 3.5- x 15-mm Integrity. Result was 0% residual stenosis. OVERALL IMPRESSION: Successful PTCA and stent of the RCA, going from 70% initial stenosis confirmed by intravascular ultrasound to 0% residual. TRANSINT:[id number] Voice Confirmation ID: [id number] DOCUMENT ID: [id number] JASE ARCOS MD at 1456 CC: [id number] DICTATION DATE: 09/12/18 1106 LIBRARIAN HELPER: 09/12/18 1310 DEP CLI 09/12/[address] [address]
== END 2018-09-12 14:45 | disposition home or self-care (01) ==
LOC: D.CATH 08:06
PROVIDERS: Internal Medicine Interventional Cardiology
DX: I25.119 Atherosclerotic heart disease of native coronary artery with unspecified angina pectoris (principal); Z01.812 Encounter for preprocedural laboratory examination

== ENCOUNTER 2019-08-05 08:02 | Outpatient (CLI) | payer OTHER ==
[~2019-08-05] VITALS: Ht 160 cm; Wt 71.4 kg
--- NOTE | ~2019-08-05 | HEMODYNAMI ---
PATIENT:THEO RIDER MEDICAL RECORD: [id number] : 68 LOCATION:[facility] ADMISSION DATE: 08/05/19 Generatedon:08/05/201910:44 Patient name: THEO RIDER Patient #: [id number] SSN: : 1970 Date of study: 08/05/2019 Page: Of Hemodynamic Procedure Report Patient Data Patient Demographics Procedure consent was obtained First Name: THEO Gender: Female Last Name: ADRY : 1970 Patient #: [id number] Age: 48 year(s) Race: Additional ID: [id number] Contact details Address: [address] [place] [address] State: [place] City: [place] Zip code: [address] Past Medical History History of disease Date Diagnosis Comments CAD Allergies: No known allergies Admission Admission Data Admission Date: 08/05/2019 Admission Time: 8:02 Arrival Date: 08/05/2019 Arrival Time: 0:00 Insurance Payor: Private health insurance [facility] #: [id number] Height (in.): 62.99 BSA: 1.74 (m2) Height (cm.): 160 BMI: 27.82 (kg/m2) Weight (lbs.): 157 Weight (kg.): 71.21 Lab Results Lab Result Date: 08/05/2019 Lab Result Time: 0:00 Biochemistry Name Units Result Min Max BUN mg/dl 13 --(--*-)-- 7 18 Creatinine mg/dl 1.1 --(--*-)-- 0.6 1.3 eGFR ml/min 56 *-(----)-- 90 120 NONAFRICAN CBC Name Units Result Min Max Hematocrit % 42.2 --(*---)-- 42 54 Hemoglobin g/dl 14.6 --(-*--)-- 13.5 17.5 Procedure Procedure Types Cath Procedure Diagnostic Procedure C [facility] w/Coronaries FFR/IVUS FFR Initial Sedation Charges Moderate Sedation up to 15 minutes PCI Procedure Coronary Stent Coronary Stent Initial Procedure Description Procedure Date Procedure Date: 08/05/2019 Procedure Start Time: 10:19 Procedure End Time: 10:40 Procedure Staff Name Function Carlos Valerio MD Performing Physician Malgorzata Ocasio RT Monitor Misty Nguyễn RT Scrub Jareth Brown RT Scrub Allison Joyner RN Nurse Jorgito Ruiz RT Hand Tier Indication Angina Procedure Data Cath Procedure Fluoroscopy Diagnostic fluoroscopy Total fluoroscopy Time: 3.2 time: 3.2 min min Diagnostic fluoroscopy Total fluoroscopy dose: 251 dose: 251 mGy mGy Contrast Material Contrast Material Type Amount (ml) Isovue 300 94 Entry Location Entry Primary Successful Side Size Upsize Upsize Entry Closure Haque ccessful Closure Location (Fr) 1 (Fr) 2 (Fr) Remarks Device Remarks Radial Right 6 Fr Mechanical artery Short Compression Estimated blood loss: 10 ml Diagnostic catheters Device Type Used For End Catheter Placement DIAGNOSTIC [place] 110cm 5 Procedure Fr catheter ([id number]) Procedure Complications No complications Procedure Medications Medication Administration Route Dosage Oxygen etCO2 Nasal cannula 2 l/min Lidocaine 2% added to field 20 Heparin Flush Bag added to field 2 bags (1000units/500ml NS) 0.9% NaCl I.V. 100 ml/hr Radial Cocktail I.A. 1 syringe (Verapamil 2mg/Nitro 400mcg/Heparin 1500units) Zofran I.V. 4 mg Versed I.V. 1 mg Fentanyl I.V. 50 mcg Versed I.V. 1 mg Fentanyl I.V. 50 mcg Versed I.V. 1 mg Heparin Bolus I.V. 4000 units Integrilin (Bolus I.V. 6.2 ml 2mg/ml) Plavix P.O. 600 mg Hemodynamics Rest BSA: 1.74 (m2) HGB: 14.6 (g/dl) O2 Consumption: Estimated: 183.92 (ml/min) O2 Co nsumption indexed: Estimated:105.7 (ml/min/m) Heart Rate: 91 (bpm) Snapshots Pre Cath Intra NCS Post Cath Vital Signs Time Heart Resp SPO2 etCO2 NIBP (mmHg) Rhythm Pain Sedation Rate (ipm) (%) (mmHg) Status Level (bpm) 10:03:18 90 13 100 33.3 157/95(126) NSR 0 (11) 10(A) , No pain 10:07:40 74 13 100 36.4 145/79(104) NSR 0 (11) 10(A) , No pain 10:11:54 78 13 97 31.8 135/77(103) NSR 0 (11) 10(A) , No pain 10:16:10 70 14 93 29.5 127/70(100) NSR 0 (11) 10(A) , No pain 10:20:23 74 10 99 30.3 145/77(102) NSR 0 (11) 9(A) , No pain 10:24:38 82 15 90 34.1 106/63(81) NSR 0 (11) 9(A) , No pain 10:28:48 72 18 96 34 123/61(83) NSR 0 (11) 9(A) , No pain 10:33:04 78 11 97 36.3 121/63(89) NSR 0 (11) 9(A) , No pain 10:37:16 84 12 100 34.8 120/69(93) NSR 0 (11) 10(A) , No pain 10:41:26 84 13 100 34.1 124/75(97) NSR 0 (11) 10(A) , No pain Medications Time Medication Route Dose Verified Delivered Reason Not es Effectiveness by by 10:02:22 Oxygen etCO2 2 l/min Carlos Cooper used for Nasal Iman Joyner RN procedure cannula 10:02:28 Lidocaine 2% added 20ml Carlos Gonzalez for local to vial Iman Valerio MD anesthetic field 10:02:35 Heparin Flush added 2 bags Carlos Gonzalez used for Bag to Iman Valerio MD procedure (1000units/500ml field NS) 10:02:44 0.9% NaCl I.V. 100 Carlos Cooper Per physician ml/hr Iman Joyner RN 10:05:56 Zofran I.V. 4 mg Carlos Cooper Per physician Iman Joyner RN 10:16:40 Versed I.V. 1 mg Carlos Cooper for sedation Iman Joyner RN 10:16:46 Fentanyl I.V. 50 mcg Carlos Cooper for sedation Iman Joyner RN 10:20:32 Radial Cocktail I.A. 1 Carlos Gonzalez for (Verapamil syringe Iman Valerio MD vasodilation 2mg/Nitro 400mcg/Heparin 1500units) 10:20:37 Versed I.V. 1 mg Carlos Cooper for sedation Iman Joyner RN 10:20:41 Fentanyl I.V. 50 mcg Carlos Cooper for sedation Iman Joyner RN 10:26:23 Versed I.V. 1 mg Carlos Cooper for sedation Iman Joyner RN 10:30:18 Heparin Bolus I.V. 4000 Carlos Cooper for units Iman Joyner RN anticoagulation 10:31:41 Integrilin I.V. 6.2 ml Carlos Cooper for was virgilio (Bolus 2mg/ml) Iman Joyner RN antiplatelet 3.8 ml therapy of vial 10:39:33 Plavix P.O. 600 mg Carlos Cooper for Iman Joyner RN antiplatelet therapy Procedure Log Time Note 9:47:55 Informed consent obtained and on chart 9:48:21 Procedure Status Elective Heart Cath (OP). 9:48:22 Time tracking: Regular hours (M-F 7:00 - 5:00) 9:48:25 Plan of Care:Hemodynamics will remain stable., Cardiac rhythm will remain stable., Comfort level will be maintained., Respiratory function will remain adequate., Patient/ family verbilizes understanding of procedure., Procedure tolerated without complication., Recovers from procedure without complications.. 9:48:28 Jorgito BASHIR(R) sent for patient. Start room use. 9:54:36 H&P Date Dictated: 08/03/2019 Within 30 days and on chart., H&P Addendum completed by physician on day of procedure. (MUST COMPLETE FOR ALL OUTPATIENTS). 9:54:41 Patient allergic to No known allergies 9:54:48 Patient Weight : 157 lbs 9:55:01 Patient Height : 62.99 inches 9:55:06 Arrival Date: 08/05/2019 12:00:00 AM 9:55:48 Lab Result : Hematocrit 42.2 % 9:55:48 Lab Result : eGFR NONAFRICAN 56 ml/min 9:55:48 Lab Result : Hemoglobin 14.6 g/dl 9:55:48 Lab Result : BUN 13 mg/dl 9:55:48 Lab Result : Creatinine 1.1 mg/dl 9:56:14 Patient received from Pre/Post Procedure Room to [facility] 1 Alert and oriented. Tansferred to table in Supine position. 9:56:16 Warm blankets applied, and hiral hugger turned on for patient comfort. 9:56:16 Correct patient and procedure confirmed by team. 9:56:16 ECG and BP/O2 sat monitors applied to patient. 9:58:28 Risk of Mortality: .1 9:58:30 Risk of blood transfusion: .5 9:58:33 Risk of TAMMY: 1.2 9:59:05 ACC Patient presents with Stable Angina CCS Anginal Class 3--Marked limitation of physical activity, angina occurs with ordinary activity.. 9:59:07 ACCPatient has been prescribed/administered the following anti-anginal medication within the last 2 weeks: Beta Gina 10:02:09 Vital chart was started 10:02:22 Oxygen 2 l/min etCO2 Nasal cannula was administered by Allison Joyner RN; used for procedure; Verbal order read back and verified. 10:02:28 Lidocaine 2% 20ml vial added to field was administered by Carlos Valerio MD; for local anesthetic; Verbal order read back and verified. 10:02:35 Heparin Flush Bag (1000units/500ml NS) 2 bags added to field was administered by Carlos Valerio MD; used for procedure; Verbal order read back and verified. 10:02:44 0.9% NaCl 100 ml/hr I.V. was administered by Allison Joyner RN; Per physician; Verbal order read back and verified. 10:03:17 Baseline sample Acquired. 10:03:20 Rhythm: sinus rhythm 10:03:21 Full Disclosure recording started 10:03:22 Pre-procedure instructions explained to patient. 10:03:22 Pre-op teaching completed and patient verbalized understanding. 10:03:24 Family in patients room. 10:03:26 Patient NPO since Midnight. 10:03:30 Is the patient allergic to Iodine/contrast media? No. 10:03:32 Is patient on blood thinner?No 10:03:36 Patient diabetic? No. 10:03:43 Patient not . Patient has had hysterectomy. 10:03:55 Previous problem with sedation/anesthesia? No ? 10:03:56 Snore? Yes 10:03:57 Sleep apnea? No 10:03:58 Deviated septum? No 10:04:00 Opens mouth fully? Yes 10:04:01 Sticks out tongue? Yes 10:04:02 Airway obstruction? No ? 10:04:05 Dentures? No ? 10:04:07 Modified Pedro's test Ulnar < 7 seconds 10:04:09 Patient pain scale 0/10 ?. 10:04:18 IV patent on arrival in right antecubital with 0.9% NaCl at [facility]. 10:04:21 Lab results completed and on chart. 10:04:25 Right Radial & Right Groin area was prepped with chlora-prep and draped in sterile fashion 10:04:26 Alarms reviewed by R. N. 10:04:26 Sharps counted by scrub and verified by R.N. 10:04:29 Use device set Radial Dx or PCI 10:04:31 ACIST Syringe (05442) opened to sterile field. 10:04:31 Medline Cath Pack ([id number]) opened to sterile field. 10:04:31 Bag Decanter (2002S) opened to sterile field. 10:04:32 ACIST Hand Control (11419) opened to sterile field. 10:04:32 ACIST Manifold (67147) opened to sterile field. 10:04:32 Tegaderm 4 x 4 (1626W) opened to sterile field. 10:04:34 MBrace Wrist Support ([id number]) opened to sterile field. 10:04:34 EMERALD Guide Wire (240-767) opened to sterile field. 10:04:35 SHEATH 6FR RAIN (1472538) opened to sterile field. 10:05:56 Zofran 4 mg I.V. was administered by Allison Joyner RN; Per physician; Verbal order read back and verified. 10:10:44 Indication : Angina 10:12:38 Insurance Payor : Private health insurance 10:16:28 --------ALL STOP TIME OUT------ 10:16:28 Final Timeout: patient, procedure, and site verified with staff and physician. All members of the team are in agreement. 10:16:30 Right Radial & Right Groin site verified by team. 10:16:34 Fire Safety Assessment: A--An alcohol-based skin anteseptic being used preoperatively., C--Open oxygen or nitrous oxide is being used., D--An ESU, laser, or fiber-optic light is being used. 10:16:37 Physical assessment completed. ASA score P 2 - A patient with mild systemic disease as per Carlos Valerio MD. 10:16:40 Versed 1 mg I.V. was administered by Allison Joyner RN; for sedation; Verbal order read back and verified. 10:16:41 3a) 45-59 Moderately reduced kidney function. 10:16:46 Fentanyl 50 mcg I.V. was administered by Allison Joyner RN; for sedation; Verbal order read back and verified. 10:16:52 Maximum allowable contrast dose (3.7 X eGFR X 0.75)155 ml. 10:16:55 Sedation plan: IV Moderate Sedation Medication:Versed, Fentanyl 10:17:09 Zero performed for pressure channel P1 10:19:03 Procedure started. 10:19:11 Local anesthetic to right radial artery with Lidocaine 2% by Carlos Valerio MD.INITIAL ACCESS ONLY 10:19:35 A 6 Fr Short sheath was inserted into the Right Radial artery 10:20:07 A DIAGNOSTIC [place] 110cm 5 Fr catheter (930100) was advanced over the wire and used for Procedure. 10:20:32 Radial Cocktail (Verapamil 2mg/Nitro 400mcg/Heparin 1500units) 1 syringe I.A. was administered by Carlos Valerio MD; for vasodilation; Verbal order read back and verified. 10:20:37 Versed 1 mg I.V. was administered by Allison Joyner RN; for sedation; Verbal order read back and verified. 10:20:37 LV gram done using [place] 10:20:38 Injector settings: Ml/sec: 5, Volume: 15, 10:20:41 Fentanyl 50 mcg I.V. was administered by Allison Joyner RN; for sedation; Verbal order read back and verified. 10:21:32 EF : 60 % 10:21:50 RCA angiography performed. 10:22:33 LCA angiography performed. 10:24:49 Catheter exchanged over wire. 10:25:14 INFLATOR Merit BasixCompak ([id number]) opened to sterile field. 10:25:15 [place] Verrata Plus pressure wire (45654V) opened to sterile field. 10:25:15 GUIDE 6FR AR 2.0 catheter ([id number]) opened to sterile field. 10:25:22 ACCDominant side:Right 10:25:37 6 Fr AR 2 guide catheter was inserted over the wire 10::23 Versed 1 mg I.V. was administered by Allison Joyner RN; for sedation; Verbal order read back and verified. 10::23 FFR/IFR wire advanced. 10:28:28 Wire advanced across lesion. 10:28:37 PDA lesion measured at .88 with IFR 10:29:31 Pre PCI Site: [place] PDA has 80% stenosis. 10:30:18 Heparin Bolus 4000 units I.V. was administered by Allison Joyner RN; for anticoagulation; Verbal order read back and verified. 10:31:20 Place stent Inflation Number: 1 A COBRA RX 2.5 X 12 Stent was prepped and advanced across the R PDA . The stent was deployed at 9 MIGUEL ANGEL for 0:00 (min:sec) . 10::34 Stent catheter was removed intact over wire. 10:31:35 Wire removed. 10:31:36 Guide catheter removed. 10:31:39 ACT drawn and resulted at >400 seconds. (normal therapeutic range 180-240 seconds). 10:31:41 Integrilin (Bolus 2mg/ml) 6.2 ml I.V. was administered by Allison Joyner RN; for antiplatelet therapy; wasted 3.8 ml of vial Verbal order read back and verified. 10:32:43 Procedure ended.(Physican Out) 10:32:47 ZEPHYR REGULAR TR BAND (333848) opened to sterile field. 10:32:55 Sheath removed intact; hemostasis achieved with Mechanical Compression to the Right Radial artery. 10:34:28 Fluoroscopy dose: 251 mGy 10:34:28 Flurop Dose total: 251 10:34:33 Fluoroscopy time 03.20 minutes. 10:34:49 Dose Area Product 09830 mGy/cm. 10:34:56 Contrast amount:Isovue 300 94ml. 10:34:58 Maximum allowable dose exceeded? No. 10:34:59 Sharps counted by scrub and verified by R.N. 10:35:01 [place] band inflated with 17cc of air. 10:35:04 Post-procedure physical assessment completed. ASA score P 2 - A patient with mild systemic disease as per Carlos Valerio MD. 10:35:06 Post procedure rhythm: sinus rhythm 10:35:09 Estimated blood loss: 10 ml 10:35:10 Post procedure instruction explained to patient.Patient verbalizes understanding. 10:35:10 Patient needs reinforcement of post procedure teaching. 10:35:52 Procedure type changed to Cath procedure, Diagnostic procedure, C, [facility] w/Coronaries, FFR/IVUS, FFR Initial, Sedation Charges, Moderate Sedation up to 15 minutes, PCI procedure, Coronary Stent, Coronary Stent Initial 10:36:45 Procedure and supply charges have been captured, reviewed, submitted and are correct. 10:36:49 Procedure Complication : No complications 10:36:52 [facility] Findings: MVD- PCI performed (see procedure note) 10:36:53 Operative report dictated upon procedure completion. 10:36:53 See physician's report for complete and final results. 10:38:45 Report given to Pre/Post Procedure Room. 10:38:48 Patient transfered to Pre/Post Procedure Room with Bed. 10:38:57 ACC-PCI Only Patient was given prescriptions, or instructed by Carlos Valerio MD to start/continue the following medications upon discharge: Plavix 10:39:33 Plavix 600 mg P.O. was administered by Allison Joyner RN; for antiplatelet therapy; Verbal order read back and verified. 10:40:47 Vital chart was stopped 10:40:49 Procedure ended. 10:40:49 Full Disclosure recording stopped 10:40:55 End room use (Document Last) Intervention Summary Intervention Notes Time ActionType Lesion and Equipment Action# Pressure Duration Attributes Used 10:31:20 Place stent R PDA COBRA RX 1 9 00:00 2.5 X 12 Stent Device Usage Item Name Manufacture Quantity Catalog Hospital Part Current Minimal Lot# / Number Charge Number Stock Stock Serial# Code ACIST Syringe Acist 1 72569 [id number] 547284 [id number] 20 (35431) Medical Systems Inc Medline Cath Medline 1 [id number] 354343 43120 175248 5 Pack ([id number]) Bag Decanter Microtek 1 2001S 060533 70551 838271 5 () Medical Inc. ACIST Hand Acist 1 00497 374050 540739 967918 5 Control Medical (27149) Systems Inc ACIST Manifold Acist 1 79591 020130 579464 924831 5 (48801) Medical Systems Inc Tegaderm 4 x 4 3M 1 1626W 114766 755913 774512 5 (1626W) MBrace Wrist Advanced 1 140-0250-00 220807 40371 822655 5 Support Vascular ([id number]) Dynamics EMERALD Guide Cardinal 1 502-455 904491 189032 360176 5 Wire (502-455) Health SHEATH 6FR Cardinal 1 7358856 317510 0523647 836817 5 RAIN (3090634) Health DIAGNOSTIC Terumo 1 40-8563 878014 698973 922686 5 [place] 110cm 5 Fr catheter (452741) INFLATOR Merit Merit 1 OF5286 352049 973643 670345 15 BitrockrtxJumptap Medical (ZQ8135) [place] 1 80301I 597555 284474691 145749 5 Verrata Plus pressure wire (21195N) GUIDE 6FR AR Medtronic 1 [id number] 809056 09587 766339 1 2.0 catheter (QA5JA84) COBRA RX 2.5 X Celonova 1 163-88-08009 700000 [id number] 9 1 [id number] 12 stent Biosciences (245-44-22315) ZEPHYR REGULAR Cardinal 1 097663 585503 5575264 637820 5 TR BAND Afinity [employer] Sciences (401596) Signature Audit [place] Stage Time Signature Unsigned Intra-Procedure 08/05/2019 Malgorzata Ocasio 10:43:17 AM RT(R) Intra-Procedure 08/05/2019 Allison Joyner RN 10:43:38 AM Intra-Procedure 08/05/2019 Carlos Valerio 10:44:00 AM [place] [id number] [place] [address]
[~2019-08-05 08:02] MED LIST changes: +BAYER CHEWABLE81 MG PO; +BYSTOLIC5 MG PO; +KRILL OIL 1,001 EAC1 PO; +RED YEAST RICE600 MG PO
[2019-08-05] MEDS ORDERED: MOBIC7.5 MG PO (08:20)
[2019-08-05] MEDS ORDERED: LIPITOR40 MG PO (08:20)
[2019-08-05] MEDS ORDERED: OMEGA-3100 MG PO (08:21)
[2019-08-05] MEDS ORDERED: PEPCID AC20 MG PO (08:21)
[2019-08-05] MEDS ORDERED: QUNOL (08:22)
[2019-08-05 08:30] VITALS: BP 163/70; Ht 160 cm; Wt 71.4 kg
[2019-08-05 08:48] LABS: BASOPHILS 0.7 % (0-2); EOSINOPHILS 3.5 % (0-7); HEMATOCRIT 42.2 % (36.0-48.0); HEMOGLOBIN 14.6 g/dL (12-16); IMMATURE GRANULOCYTES 0.1 % (0-5); LYMPHOCYTES 37.7 % (15-50); MCH 30.2 pg (26.0-34.0); MCHC 34.6 g/dL (31.0-37.0); MCV 87.2 fL (80.0-100.0); MEAN PLATELET VOLUME 10.4 fL (7.4-10.4); MONOCYTES 8.9 % (2-11); NEUTROPHILS 49.1 % (40-80); PLATELET COUNT 292 10x3/uL (130-400); RBC 4.84 10x6/uL (4.00-5.40); RDW 12.8 % (11.5-14.5); WBC 7.1 10x3/uL (4.8-10.8)
[2019-08-05 08:56] LABS: ANION GAP 12.5 mmol/L (8-16); CALCIUM 8.9 mg/dL (8.5-10.1); CARBON DIOXIDE 25.9 mmol/L (21.0-32.0); CREATININE - SERUM 1.1 mg/dL (0.6-1.3); POTASSIUM - SERUM 3.4 mmol/L (3.5-5.1)
[2019-08-05 09:01] LABS: CHOL - HDL RATIO 3.6 ratio (2.3-4.1); LDL-HDL RATIO 2.2 ratio (1.5-3.5)
--- NOTE | 2019-08-05 10:45 | NUR ---
PT RECEIVED VIA STRETCHER FROM GRIPPER INSTALLER FOR RECOVERY. PT AWAKE BUT DROWSY, SHE DENIES PAIN OR DISCOMFORT. PT PLACED ON CARDIAC MONITORS AND O2 VIA NC AT 1L. HR NSR RATE 74, BP 129/66, RR 16, SAT 99. ZYPHER BAND AND IMMOBILIZER TO R WRIST, DRESSING CDI NO BLEEDING OR HEMATOMA NOTED. ARM PINK AND WARM, CAP REFILL BRISK. PT INSTRUCTED TO NOT USE R ARM TO PULL OR PUSH, SHE VERBALIZED UNDERSTANDING. IV PATENT INFUSING VIA ORDERS. CALL LIGHT IN REACH.
[2019-08-05] MEDS ORDERED: PLAVIX75 MG PO (10:55)
--- NOTE | 2019-08-05 11:15 | NUR ---
PT RESTING COMFORTABLY, Z BAND AND IMMOBILIZER IN PLACE. DRESSING CDI NO BLEEDING OR SWELLING NOTED. CAP REFILL BRISK. TOLERATING PO FLUIDS. CALL LIGHT IN REACH, FAMILY AT BEDSIDE
--- NOTE | 2019-08-05 12:00 | NUR ---
PT RESTING W/O COMPLAINTS. Z BAND IN PLACE, DRESSING CDI NO BLEEDING OR HEMATOMA NOTED. ARM PINK AND WARM, CAP REFILL BRISK. PT DENIES PAIN OR NEEDS. SPRITE GIVEN. HR 62, BP 121/66, RR 10. CALL LIGHT IN REACH, AT BEDSIDE
--- NOTE | 2019-08-05 12:30 | NUR ---
PT RESTING COMFORTABLY. R WRIST FREE OF BLEEDING OR SWELLING. DRESSING CDI. ARM PINK AND WARM, CAP REFILL BRISK. VSS. PT DENIES PAIN OR NEEDS. SANDWICH TRAY SERVED. CALL LIGHT IN REACH
--- NOTE | 2019-08-05 13:00 | NUR ---
PT RESTING, DENIES PAIN OR DISCOMFORT. Z BAND IN PLACE, DRESSING CDI NO BLEEDING OR SWELLING NOTED. 5CC AIR REMOVED FROM BAND W/O BLEEDING. VSS. CALL LIGHT IN REACH, FAMILY AT BEDSIDE
--- NOTE | 2019-08-05 13:30 | NUR ---
3 ADD'L CC AIR REMOVED FROM Z BAND. NO BLEEDING OR HEMATOMA NOTED. DRESSING REMAINS CDI. HR 61, BP 132/53, O2 SAT 99. PT DENIES NEEDS. CALL LIGHT REMAINS IN REACH
--- NOTE | 2019-08-05 14:00 | NUR ---
DISCHARGE TEACHING REVIEWED W PT AND , BOTH VERBALIZED UNDERSTANDING. PT INSTRUCTED ON IMPORTANCE OF TAKING PLAVIX STARTING TOMORROW, SHE VERBALIZED UNDERSTANDING.
--- NOTE | 2019-08-05 14:16 | NUR ---
PT AMBULATED TO BR, VOIDING W/O DIFFICULITY. REMAINING AIR AND Z BAND REMOVED. NO BLEEDING NOTED. 2X2 AND TEGADERM DRESSING APPLIED. PT DISCHARGED VIA WC TO WAITING IN PRIVATE VEHICLE. PT HAD ALL BELONGINGS AND DISCHARGE PAPERWORK.
--- NOTE | 2019-08-10 09:28 | OP ---
PATIENT NAME: THEO RIDER MEDICAL RECORD: [id number] :68 LOCATION:D.CAT ADMISSION DATE: SURGEON: JASE ARCOS MD DATE OF OPERATION: 08/05/2019 PROCEDURES: 1. PTCA stent RCA. 2. IFR. 3. Left heart catheterization. 4. Selective coronary angiography. 5. Left ventriculogram. INDICATION: Angina and coronary artery disease. PROCEDURE IN DETAIL: After informed consent was obtained and after a detailed description of risks, benefits as well as alternative therapies, the patient elected to proceed with angiogram and angioplasty. The right radial area was prepped and draped in normal sterile fashion. Right radial artery was cannulated via modified Seldinger technique with placement of 6-Lao sheath. All catheters exchanged through this sheath. FINDINGS: Left ventriculogram was performed in standard 30-degree [place] view, reveals good cardiac wall motion, ejection fraction estimated 60%. SELECTIVE CORONARY ANGIOGRAPHY: 1. Left main is with no significant angiographic disease. 2. Left anterior descending has previously placed stent that is widely patent with no significant restenosis. No disease elsewise throughout the LAD or its branches. 3. The left circumflex has mild irregularities, but no flow-limiting stenosis. 4. The right coronary has previously placed stent proximally. This is widely patent with no significant restenosis. PDA has an 80% stenosis and IFR is abnormal. PTCA STENT OF THE RCA PDA: Stent used was a 2.5 x 12 mm caliber. Result was 0% residual stenosis. OVERALL IMPRESSION: Successful percutaneous transluminal coronary angioplasty stent of the RCA PDA going from 80% initial stenosis to 0% residual. TRANSINT:[id number] Voice Confirmation ID: [id number] DOCUMENT ID: [id number] JASE ARCOS MD at 0928 CC: [id number] DICTATION DATE: 08/05/19 1041 ROVING TECHNICIAN: 08/05/19 1048 DEP CLI 08/05/[address] [address]
== END 2019-08-05 14:16 | disposition home or self-care (01) ==
LOC: D.CATH 08:02
PROVIDERS: ATTEND Internal Medicine Interventional Cardiology
DX: I25.110 Atherosclerotic heart disease of native coronary artery with unstable angina pectoris (principal); R06.02 Shortness of breath